=== PATIENT | male | born 1965 | race Caucasian/White ===

== ENCOUNTER 2022-02-03 16:38 | Emergency (ER) | payer BC ==
[~2022-02-03] VITALS: Ht 182.9 cm; Wt 100.9 kg
[2022-02-03 16:44] VITALS: BP 155/91
--- NOTE | 2022-02-03 17:09 | PHYS DOC ---
Past Medical History Past Surgical History: No Surgical History General Adult EDM: Chief Complaint: ANXIETY/PANIC ATTACK HPI: HPI: Patient is a 56-year-old male who presents to the emergency department complaining of feeling the jitters since stopping drinking coffee cold turkey. Patient reports his 80-year-old father recently of a heart attack after smoking cigarettes for most all of his life. Patient is worried that he might be having a heart attack. Patient denies chest pains, shortness of breath, chest palpitations, chest or nasal congestion, recent fever or chills, abdominal pain, nausea, vomiting, or diarrhea. Patient denies a family history of sudden cardiac . Patient reports he was just started on Lexapro last night for anxiety after a visit to his primary care office, it was noted he had a PVC on his EKG, this has scared him and he is worried that he might be having a heart attack. Patient denies a family history of diabetes. Patient denies other physical concerns or physical complaints. Review of Systems: Review of Systems: 14 body systems of review of systems have been reviewed. See HPI for pertinent positives and negative responses, otherwise all other systems are negative, nonpertinent or noncontributory. Constitutional: Negative except as outlined in HPI above. Skin: Negative except as outlined in HPI above. Eyes: Negative except as outlined in HPI above. HENT: Negative except as outlined in HPI above. Respiratory: Negative except as outlined in HPI above. Cardiovascular: Negative except as outlined in HPI above. GI: Negative except as outlined in HPI above. : Negative except as outlined in HPI above. Musculoskeletal: Negative except as outlined in HPI above. Integument: Negative except as outlined in HPI above. Neurologic: Negative except as outlined in HPI above. Endocrine: Negative except as outlined in HPI above. Lymphatic: Negative except as outlined in HPI above. Psychiatric: Negative except as outlined in HPI above. Heart Score: C/O Chest Pain: No Risk Factors: Risk Factors: DM, Current or recent (<one month) smoker, HTN, HLP, family history of CAD, obesity. Risk Scores: Score 0 - 3: 2.5% MACE over next 6 weeks - Discharge Home Score 4 - 6: 20.3% MACE over next 6 weeks - Admit for Clinical Observation Score 7 - 10: 72.7% MACE over next 6 weeks - Early Invasive Strategies Allergies: Allergies: Allergies Coded Allergies Type Severity Reaction Last Updated Verified No Known Drug Allergies 02/03/22 No Physical Exam: PE: Constitutional: Well developed, well nourished, no acute distress, non-toxic appearance. 56-year-old male in no apparent distress. HENT: Normocephalic, atraumatic. Oral mucosa moist, pink, no deep tissue infect ious process appreciated, bilateral TMs intact with a normal limits, no fetid have a neck appreciated. Eyes: Conjunctiva normal, no discharge. No scleral icterus. Neck: Normal range of motion, no stridor. No meningismus signs, no nuchal rigidity. Cardiovascular: No cyanosis appreciated, distal cap refill less than 2 seconds. Regular rate and rhythm, heart sounds S1-S2 dilatation. Lungs & Thorax: Patient is in no respiratory distress, no audible adventitious lung sounds appreciated. Lung sounds clear to auscultation all lung nugent. Abdomen: Nontender, no abnormalities noted. Skin: Warm, dry, no erythema, no rash. Back: No tenderness, no deformities. Extremities: No tenderness, no cyanosis, no clubbing, ROM intact, no edema. Neurologic: Alert and oriented X 3, normal motor function, normal sensory function, no focal deficits noted. Psychologic: Affect normal, judgement normal, mood normal. . Current Patient Data: Vital Signs: Vital Signs Date Time Temp Pulse Resp B/P (MAP) Pulse Ox O2 Delivery O2 Flow Rate FiO2 02/03/22 16:44 98.6 83 14 155/91 (112) 97 98.6 EKG: EKG: [] Radiology/Procedures: Radiology/Procedures: [] Course & Med Decision Making: Course & Med Decision Making Pertinent Labs and Imaging studies reviewed. (See chart for details) 56-year-old male, vital signs reviewed, presents to the emergency department concerning having the jitters since starting Lexapro last night. Patient's physical examination is unremarkable. Patient's vital signs are within normal limits. Patient does not have chest pain or shortness of breath. Patient has not experienced diaphoretic episodes, syncopal or near syncopal episodes or other symptoms that would warrant a cardiac or respiratory work-up. Patient is nontoxic in appearance, appears very healthy there is no family history of sudden cardiac , discussed with patient symptoms related to recently starti ng Lexapro, patient has also recently stopped drinking coffee cold turkey after drink coffee for many years, discussed with patient withdrawal symptoms from caffeine. Patient has close follow-up with primary care soon, discussed home care instructions with patient, patient feels comfortable being discharged home. Patient gave verbal understanding and was amenable to ED discharge planning. Discussed with the patient all findings and diagnostic testing as well as the need to follow-up with their primary care provider for further evaluation and treatment or return to the ED if any new or worsening symptoms. Strict return precautions were also discussed at length, the patient voiced understanding and agreement with the discharge planning. The patient was nontoxic in appearance, in no apparent distress, and hemodynamically stable at the time of disposition. Dragon Disclaimer: Deltasight Disclaimer: This electronic medical record was generated, in whole or in part, using a voice recognition dictation system. Departure Departure Impression: Primary Impression: Feared condition not demonstrated Disposition: HOME / SELF CARE / HOMELESS Condition: GOOD Additional Instructions: You were seen today in the emergency department concerned about having a PVC at your primary care physician's office. As we discussed your symptoms may be related to your stopping of caffeinated products cold turkey and the recent start of Lexapro. These can cause feelings of anxiety. It may take some time for your body to wean himself off the addiction to caffeinated products. Please continue to take all of your medications as prescribed by your doctor. Keep all of your future appointments with your doctor. Your vital signs were all within normal limits today. You did not present to the emergency department with any worrisome signs that would require admission to the hospital or immediate attention by a physician specialist. Thank you for visiting our Emergency Department. It was a pleasure taking care of you today in the emergency department and we appreciate you trusting us with your care. If any additional problems come up don't hesitate to return to visit us. Please follow up with your primary care provider so they can plan additional care if needed and know about the problem that you had. If symptoms worsen come back to the Emergency Department. Any concerning symptoms that start such as chest pain, shortness of air, weakness or numbness on one side of the body, running high fevers or any other concerning symptoms return to the ER. CHRISTI PERLA APRN Feb 03, 2022 17:09
--- NOTE | 2022-02-04 10:10 | EKG ---
[facility] [address] [place] [address] Test Date: 2022-02-03 Test Time: 16:48:26 Pat Name: PRICILLA CHENG Department: Room: Gender: M [employer]: : 1965 Requested By: CHRISTI PERLA Order Number: [id number] Reading MD: Trev Carcamo Measurements Intervals [place] Rate: 82 P: 40 MA: 150 QRS: 35 QRSD: 94 T: 33 QT: 350 QTc: 412 Interpretive Statements SINUS RHYTHM QRS(T) CONTOUR ABNORMALITY CONSIDER INFERIOR INFARCT Electronically Signed On 02-05-2022 13:24:23 CDT by Trev Carcamo
== END 2022-02-03 17:26 | disposition home or self-care (01) ==
LOC: ER 16:38
DX: Z71.1 Person with feared health complaint in whom no diagnosis is made (principal); R07.89 Other chest pain; F17.210 Nicotine dependence, cigarettes, uncomplicated
CPT/HCPCS: 93005; 99283